=== PATIENT | female | born 1990 | race Caucasian/White ===

== ENCOUNTER → 2021-02-17 14:00 | Observation (INO) ==
[2021-02-17 12:01] LABS: Hematocrit 37.9 % (35.3-44.9); Hemoglobin 12.8 g/dL (11.5-15.4); Mean Corpuscular HGB Conc 33.8 g/dL (31.6-35.5); Mean Corpuscular Hemoglobin 32.6 pg (28.0-33.3); Mean Corpuscular Volume 96.4 fL (83.0-100.0); Mean Platelet Volume 9.6 fL (9.4-12.4); Platelet Count 153 K/mcL (140-400); Red Blood Count 3.93 M/mcL (3.82-4.97); Red Cell Distribution Width 12.7 % (11.5-14.5); White Blood Count 10.3 K/mcL (4.3-11.1)
[~2021-02-17 14:00] MED LIST: D5% in Lactated Ringers 1,000 ML IVC SCH; Ondansetron 4 MG/2 ML VIAL IVP PRN
== END | disposition home or self-care (01) ==
LOC: 1NENULAB
PROVIDERS: ADMIT Advanced Practice Midwife; ATTEND Advanced Practice Midwife

== ENCOUNTER 2021-03-01 05:53 | Inpatient (IN) ==
[2021-03-01] MEDS ORDERED: Metoclopramide 10 MG/2 ML VIAL IVP PRN (07:41)
[2021-03-01] MEDS ORDERED: Naloxone 0.4 MG/ML INJ IVP PRN (07:41)
[2021-03-01] MEDS ORDERED: *HR* Nalbuphine 10 MG/ML AMPUL IV PRN (07:41)
[2021-03-01] MEDS ORDERED: Famotidine 20 MG/2 ML VIAL IVP PRN (07:41)
[2021-03-01] MEDS ORDERED: Ringers Solution, Lactated 1,000 ML IVC SCH (07:45)
[2021-03-01] MEDS ORDERED: Oxytocin 20 units/ LR 1000 mL 20 UNIT/1,000 ML BAG IVC SCH ×2 (08:45→17:05)
[2021-03-01 09:08] LABS: Basophils # 0.1 K/mcL (0.0-0.2); Basophils % 0.4 %; Eosinophils # 0.1 K/mcL (0.0-0.6); Eosinophils % 0.8 %; Hematocrit 39.7 % (35.3-44.9); Hemoglobin 13.4 g/dL (11.5-15.4); Immature Granulocytes % 0.8 % (0-4); Lymphocytes # 2.4 K/mcL (0.6-4.6); Lymphocytes % 14.9 %; Mean Corpuscular HGB Conc 33.8 g/dL (31.6-35.5); Mean Corpuscular Hemoglobin 32.2 pg (28.0-33.3); Mean Corpuscular Volume 95.4 fL (83.0-100.0); Mean Platelet Volume 9.4 fL (9.4-12.4); Monocytes # 1.2 K/mcL (0.0-1.3); Monocytes % 7.5 %; Platelet Count 246 K/mcL (140-400); Red Blood Count 4.16 M/mcL (3.82-4.97); Red Cell Distribution Width 12.7 % (11.5-14.5); Segmented Neutrophils % 75.6 %; White Blood Count 15.8 K/mcL (4.3-11.1)
[2021-03-01] MEDS: Ondansetron 4 MG/2 ML VIAL IVP PRN ×2 (09:08→15:42)
[2021-03-01] MEDS ORDERED: Famotidine 20 MG/2 ML VIAL IVP ONE (10:13)
[2021-03-01 10:15] LABS: Influenza A PCR Negative (Negative); Influenza B PCR Negative (Negative); Resp. Syncytial Virus PCR Negative (Negative)
[2021-03-01 10:16] LABS: SARS-CoV-2 by PCR (In House) Negative (Negative)
[2021-03-01 11:11] LABS: Amphetamine Screen,Urine Negative ng/mL (Cutoff=1000); Barbiturate Screen,Urine Negative ng/mL (Cutoff=200); Benzodiazepines Screen,Urine Negative ng/mL (Cutoff=200); Cannabinoid Screen,Urine Negative ng/mL (Cutoff = 50); Cocaine Screen,Urine Negative ng/mL (Cutoff= 300); Opiate Screen,Urine Negative ng/mL (Cutoff=300); Phencyclidine Screen,Urine Negative ng/mL (Cutoff=25)
[2021-03-01] MEDS ORDERED: Lidocaine 1% 20 ML MDV ONE (15:12)
[2021-03-01] MEDS ORDERED: Ibuprofen 600 MG TABLET PO PRN (15:41)
[2021-03-01] MEDS ORDERED: Benzocaine/Menthol 56 GM AEROSOL SPRAY TP PRN (17:05)
[2021-03-01] MEDS ORDERED: Ondansetron ODT 4 MG TAB.RAPDIS SL PRN (17:05)
[2021-03-01] MEDS ORDERED: *HR* OxyCODONE Immed Rel 5 MG TABLET PO PRN (17:05)
[2021-03-01] MEDS ORDERED: Lanolin 7 G OINT...G. TP PRN (17:05)
[2021-03-01] MEDS ORDERED: Rho Immune Globulin 1,500 UNIT SYRINGE IM PRN (17:05)
[2021-03-01] MEDS: Ibuprofen 600 MG TABLET PO SCH (19:02)
[2021-03-01] MEDS: Acetaminophen 325 MG TABLET PO SCH (19:02)
[2021-03-02] MEDS: Acetaminophen 325 MG TABLET PO SCH ×2 (01:30→07:35)
[2021-03-02] MEDS: Ibuprofen 600 MG TABLET PO SCH ×2 (01:30→07:35)
[2021-03-02 07:38] VITALS: BP 112/71; PULSE 55; TEMP 98.1; O2SAT 98
[2021-03-02] MEDS ORDERED: Prenatal Vit/FA 1 EACH TABLET PO SCH (09:00)
== END 2021-03-02 12:47 | disposition home or self-care (01) | DRG 805 ==
LOC: 1NENULAB 05:53 → 1NENUOBS 17:58
PROVIDERS: ADMIT Advanced Practice Midwife; ATTEND Advanced Practice Midwife